=== PATIENT | male | born 1965 | race Caucasian/White ===

== ENCOUNTER 2017-11-17 15:03 | Emergency (ER) | payer MEDICAID ==
[~2017-11-17] VITALS: Ht 177.8 cm; Wt 97.7 kg
[2017-11-17] MEDS ORDERED: METO50 PO (17:22)
[2017-11-17] MEDS ORDERED: HYDR25TA PO (17:22)
[2017-11-17] MEDS ORDERED: NITR.4 SL (17:22)
[2017-11-17] MEDS ORDERED: LISI-662 PO (17:22)
[2017-11-17] MEDS ORDERED: HYDR25TA84 PO (17:22)
[2017-11-17] MEDS ORDERED: AMLO-512 PO (17:22)
[2017-11-17] MEDS ORDERED: NORT10 PO (17:22)
[2017-11-17] MEDS ORDERED: ATOR10TA84 PO (17:22)
[2017-11-17] MEDS ORDERED: KETOROLAC TROMETHAMINE 30 MG/ML VIAL IM ONE (18:00)
[2017-11-17] MEDS ORDERED: ACETAMINOPHEN 500 MG TABLET PO ONE (18:00)
[2017-11-17 18:13] VITALS: BP 146/95
== END 2017-11-17 18:18 | disposition home or self-care (01) ==
LOC: EMS 17:02
DX: K04.7 Periapical abscess without sinus (principal); E78.00 Pure hypercholesterolemia, unspecified; I10 Essential (primary) hypertension
CPT/HCPCS: 96372; 99283; J1885

== ENCOUNTER 2018-06-16 13:53 | Inpatient (IN) | payer SELFPAY ==
[~2018-06-16] VITALS: Ht 177.8 cm; Wt 99.9 kg
[~2018-06-16 13:53] MED LIST: AMLO-512 PO; ATOR10TA84 PO; HYDR25TA PO; HYDR25TA84 PO; LISI-662 PO; METO50 PO; NITR.4 SL; NORT10 PO
[2018-06-16 14:31] LABS: BASOPHILS % (AUTO) 0.4 % (0.0-2.0); HEMATOCRIT 46.6 % (41-53); HEMOGLOBIN 16.1 g/dL (13.5-17.5); LYMPHOCYTES % (AUTO) 27.2 % (22.0-44.0); MEAN CORPUSCULAR HEMOGLOBIN 30.7 pg (26.0-34.0); MEAN CORPUSCULAR HGB CONC 34.5 G/dL (31.0-37.0); MEAN CORPUSCULAR VOLUME 89 fL (80-100); MONOCYTES # (AUTO) 0.6 K/uL (0.1-1.0); MONOCYTES % (AUTO) 7.8 % (2.0-9.0); NEUTROPHILS # (AUTO) 4.7 K/uL (1.8-7.7); NEUTROPHILS % (AUTO) 63.6 % (40.0-70.0); PLATELET COUNT (AUTO) 298 K/uL (150-450); RED BLOOD CELL COUNT(AUTO) 5.25 MIL/uL (4.50-5.90); RED CELL DISTRIBUTION WIDTH 12.7 % (11.5-14.5)
[2018-06-16 14:37] LABS: ANION GAP 9 mmol/L (8-16); CALCIUM, TOTAL 9.1 mg/dL (8.8-10.5); CARBON DIOXIDE 25 mmol/L (22-29); CHLORIDE 106 mmol/L (98-107); CREATININE 1.02 mg/dL (0.60-1.30); GLOMERULAR FILTR. RATE CALC > 60 mL/min (>60); GLUCOSE,RANDOM 119 mg/dL (70-110); POTASSIUM 3.8 mmol/L (3.5-5.1); SODIUM SERUM 140 mmol/L (136-145); UREA NITROGEN, BLOOD 11 mg/dL (7-18)
[2018-06-16 14:38] LABS: INR 1.1 (0.9-1.1)
[2018-06-16] MEDS ORDERED: ASPIRIN 325 MG TABLET PO ONE (14:45)
[2018-06-16] MEDS ORDERED: NITROGLYCERIN 0.4 MG SUBLINGUAL TABLET #25 SL ONE (14:45)
[2018-06-16 15:00] LABS: B-TYPE NATRIURETIC PEPTIDE < 5 pg/mL (0-100)
[2018-06-16 15:02] LABS: ALANINE AMINOTRANSFERASE 38 U/L (12-78); ALBUMIN 3.8 g/dL (3.4-5.0); ALKALINE PHOSPHATASE 97 U/L (46-116); ASPARTATE AMINOTRANSFERASE 17 U/L (15-37); BILIRUBIN,TOTAL 0.4 mg/dL (0.1-1.0); CREATINE KINASE, TOTAL ONLY 88 U/L (39-308); TOTAL PROTEIN, SERUM 7.9 g/dL (6.4-8.2)
[2018-06-16] MEDS ORDERED: MORPHINE SULFATE 4 MG/ML SYRINGE IVP ONE (15:15)
[2018-06-16] MEDS ORDERED: SIMVASTATIN 20 MG TABLET PO SCH (16:30)
[2018-06-16] MEDS ORDERED: AmLODIPine BESYLATE 10 MG TABLET PO SCH (16:30)
[2018-06-16 17:31] VITALS: BP 129/78
[2018-06-16] MEDS ORDERED: MORPHINE SULFATE 2 MG/ML SYRINGE IVP PRN (18:30)
[2018-06-16 19:55] VITALS: BP 128/89
[2018-06-16] MEDS ORDERED: PNEUMOCOCCAL VACCINE POLYVALENT 0.5 ML VIAL [PPSV23] IM ONE (20:00)
[2018-06-16 20:26] LABS: APPEARANCE,URINE CLEAR (CLEAR); BILIRUBIN,URINE NEGATIVE (NEGATIVE); GLUCOSE, URINE (UA) NEGATIVE (NEGATIVE); KETONES,URINE NEGATIVE (NEGATIVE); LEUKOCYTE ESTERASE ,URINE NEGATIVE (NEGATIVE); NITRATE,URINE NEGATIVE (NEGATIVE); OCCULT BLOOD,URINE NEGATIVE (NEGATIVE); PH,URINE 5.5 (5.0-8.0); PROTEIN,URINE NEGATIVE (NEGATIVE); UROBILINOGEN,URINE 0.2 mg/dL (<=1.0)
[2018-06-16] MEDS ORDERED: OxyCODONE HCL/ACETAMINOPHEN 5-325 MG TABLET PO PRN (20:30)
[2018-06-16] MEDS ORDERED: MAGNESIUM HYDROXIDE SUSPENSION 30 ML UDCUP PO PRN (20:30)
[2018-06-16] MEDS ORDERED: ACETAMINOPHEN 325 MG TABLET PO PRN (20:30)
[2018-06-16] MEDS: DOCUSATE SODIUM 100 MG CAPSULE PO SCH (20:53)
[2018-06-16] MEDS ORDERED: HydrALAZINE HCL 25 MG TABLET PO SCH (21:00)
[2018-06-16] MEDS ORDERED: CARVEDILOL 12.5 MG TABLET PO SCH (21:00)
[2018-06-17] VITALS (7 sets, daily range): BP systolic 115–139; BP diastolic 65–91
[2018-06-17] MEDS: DOCUSATE SODIUM 100 MG CAPSULE PO SCH ×2 (08:01→20:09)
[2018-06-17] MEDS: PANTOPRAZOLE SODIUM 40 MG DR TABLET PO SCH (08:02)
[2018-06-17] MEDS: AmLODIPine BESYLATE 5 MG TABLET PO SCH ×2 (08:02→20:09)
[2018-06-17] MEDS: METOPROLOL TARTRATE 50 MG TABLET PO SCH ×2 (08:02→20:09)
[2018-06-17] MEDS: ATORVASTATIN CALCIUM 20 MG TABLET PO SCH (08:02)
[2018-06-17] MEDS ORDERED: ASPIRIN 325 MG TABLET PO SCH (09:00)
[2018-06-17] MEDS ORDERED: SODIUM CHLORIDE 0.9% 1,000 ML IV ONE ×2 (09:48→10:00)
[2018-06-17] MEDS ORDERED: IOVERSOL 350 MG/ML 150 ML VIAL ONE (14:37)
[2018-06-17] MEDS ORDERED: SODIUM CHLORIDE 0.9% 100 ML ONE (14:37)
[2018-06-17] MEDS ORDERED: NITROGLYCERIN 400 MCG/SUBLINGUAL SPRAY 4.9 GM BOTTLE SL ONE ×2 (14:40→15:02)
[2018-06-17] MEDS ORDERED: METOPROLOL TARTRATE 5 MG/5 ML VIAL ONE (14:40)
[2018-06-18 04:42] VITALS: BP 124/60
[2018-06-18 06:03] LABS: ALANINE AMINOTRANSFERASE 34 U/L (12-78); ALBUMIN 3.3 g/dL (3.4-5.0); ALKALINE PHOSPHATASE 81 U/L (46-116); ANION GAP 5 mmol/L (8-16); ASPARTATE AMINOTRANSFERASE 11 U/L (15-37); BILIRUBIN,TOTAL 0.5 mg/dL (0.1-1.0); CALCIUM, TOTAL 8.6 mg/dL (8.8-10.5); CARBON DIOXIDE 28 mmol/L (22-29); CHLORIDE 106 mmol/L (98-107); CREATININE 1.16 mg/dL (0.60-1.30); GLOMERULAR FILTR. RATE CALC > 60 mL/min (>60); GLUCOSE,RANDOM 89 mg/dL (70-110); POTASSIUM 3.9 mmol/L (3.5-5.1); SODIUM SERUM 139 mmol/L (136-145); TOTAL PROTEIN, SERUM 7.1 g/dL (6.4-8.2); UREA NITROGEN, BLOOD 14 mg/dL (7-18)
[2018-06-18 06:04] LABS: BASOPHILS % (AUTO) 0.3 % (0.0-2.0); EOSINOPHILS % (AUTO) 2.9 % (1.0-6.0); HEMOGLOBIN 15.8 g/dL (13.5-17.5); LYMPHOCYTES # (AUTO) 2.9 K/uL (1.0-4.8); MEAN CORPUSCULAR HEMOGLOBIN 32.7 pg (26.0-34.0); MEAN CORPUSCULAR HGB CONC 36.3 G/dL (31.0-37.0); MEAN CORPUSCULAR VOLUME 90 fL (80-100); MONOCYTES # (AUTO) 0.5 K/uL (0.1-1.0); MONOCYTES % (AUTO) 6.5 % (2.0-9.0); NEUTROPHILS % (AUTO) 52.3 % (40.0-70.0); PLATELET COUNT (AUTO) 274 K/uL (150-450); RED BLOOD CELL COUNT(AUTO) 4.82 MIL/uL (4.50-5.90); RED CELL DISTRIBUTION WIDTH 12.9 % (11.5-14.5)
[2018-06-18 07:51] VITALS: BP 108/68
[2018-06-18] MEDS: ATORVASTATIN CALCIUM 20 MG TABLET PO SCH (08:01)
[2018-06-18] MEDS: METOPROLOL TARTRATE 50 MG TABLET PO SCH (08:01)
[2018-06-18] MEDS: AmLODIPine BESYLATE 5 MG TABLET PO SCH (08:01)
[2018-06-18] MEDS: PANTOPRAZOLE SODIUM 40 MG DR TABLET PO SCH (08:01)
[2018-06-18] MEDS: DOCUSATE SODIUM 100 MG CAPSULE PO SCH (08:01)
[2018-06-18 11:41] VITALS: BP 111/68
[2018-06-18] MEDS ORDERED: METO25 PO (13:52)
[2018-06-18] MEDS ORDERED: AMLO-511 PO (13:52)
[2018-06-18] MEDS ORDERED: ASPI81 PO (13:52)
[2018-06-18] MEDS ORDERED: ATOR20TA86 PO (14:33)
== END 2018-06-18 15:30 | disposition home or self-care (01) | DRG 313 ==
LOC: EMS 13:54 → 5S 15:51
PROVIDERS: ADMIT Internal Medicine; ATTEND Internal Medicine
PROC: 3E02340 Introduction of Influenza Vaccine into Muscle, Percutaneous Approach (ICD-10-PCS; principal; 2018-06-17)
PROC: 3E0234Z Introduction of Serum, Toxoid and Vaccine into Muscle, Percutaneous Approach (ICD-10-PCS; 2018-06-17)
DX: R07.89 Other chest pain (principal); I20.0 Unstable angina; I10 Essential (primary) hypertension; E66.9 Obesity, unspecified; E78.00 Pure hypercholesterolemia, unspecified; H26.9 Unspecified cataract; E78.5 Hyperlipidemia, unspecified; Z87.11 Personal history of peptic ulcer disease; Z68.31 Body mass index [BMI] 31.0-31.9, adult; Z23 Encounter for immunization; Z87.442 Personal history of urinary calculi; Z90.49 Acquired absence of other specified parts of digestive tract; Z82.49 Family history of ischemic heart disease and other diseases of the circulatory system; Z79.82 Long term (current) use of aspirin
CPT/HCPCS: 75574; 83735; 90686; 90732; 93005; 93306; 96374; 99285; J2270; J3490; J7030; J7050

== ENCOUNTER 2019-04-30 20:59 | Emergency (ER) | payer MEDICAID ==
[~2019-04-30] VITALS: Ht 175.3 cm; Wt 91.4 kg
[~2019-04-30 20:59] MED LIST changes: -AMLO-512 PO; +AMLO5TAB9 PO; +ASPI81 PO; -ATOR10TA84 PO; +ATOR20TA86 PO; -HYDR25TA PO; -HYDR25TA84 PO; -LISI-662 PO; +METO25 PO; -METO50 PO; -NITR.4 SL; -NORT10 PO
[2019-04-30 21:45] LABS: BASOPHILS % (AUTO) 0.4 % (0.0-2.0); EOSINOPHILS % (AUTO) 1.6 % (1.0-6.0); HEMATOCRIT 45.3 % (41-53); LYMPHOCYTES # (AUTO) 2.8 K/uL (1.0-4.8); LYMPHOCYTES % (AUTO) 38.1 % (22.0-44.0); MEAN CORPUSCULAR HEMOGLOBIN 31.1 pg (26.0-34.0); MEAN CORPUSCULAR VOLUME 94 fL (80-100); MONOCYTES # (AUTO) 0.5 K/uL (0.1-1.0); MONOCYTES % (AUTO) 6.1 % (2.0-9.0); NEUTROPHILS % (AUTO) 53.8 % (40.0-70.0); PLATELET COUNT (AUTO) 309 K/uL (150-450); RED CELL DISTRIBUTION WIDTH 12.5 % (11.5-14.5)
[2019-04-30 21:56] LABS: ANION GAP 9 mmol/L (8-16); CALCIUM, TOTAL 9.1 mg/dL (8.8-10.5); CARBON DIOXIDE 27 mmol/L (22-29); CHLORIDE 106 mmol/L (98-107); CREATININE 1.22 mg/dL (0.60-1.30); GLOMERULAR FILTR. RATE CALC > 60 mL/min (>60); GLUCOSE,RANDOM 105 mg/dL (70-110); POTASSIUM 3.7 mmol/L (3.5-5.1); SODIUM SERUM 142 mmol/L (136-145); UREA NITROGEN, BLOOD 9 mg/dL (7-18)
[2019-04-30 22:03] LABS: ALANINE AMINOTRANSFERASE 21 U/L (12-78); ALBUMIN 3.8 g/dL (3.4-5.0); ALKALINE PHOSPHATASE 84 U/L (46-116); ASPARTATE AMINOTRANSFERASE 11 U/L (15-37); BILIRUBIN,TOTAL 0.3 mg/dL (0.1-1.0); TOTAL PROTEIN, SERUM 7.3 g/dL (6.4-8.2)
[2019-04-30 22:28] LABS: APPEARANCE,URINE CLEAR (CLEAR); BILIRUBIN,URINE NEGATIVE (NEGATIVE); GLUCOSE, URINE (UA) NEGATIVE (NEGATIVE); KETONES,URINE NEGATIVE (NEGATIVE); LEUKOCYTE ESTERASE ,URINE NEGATIVE (NEGATIVE); NITRATE,URINE NEGATIVE (NEGATIVE); OCCULT BLOOD,URINE TRACE (NEGATIVE); PROTEIN,URINE NEGATIVE (NEGATIVE); UROBILINOGEN,URINE 0.2 mg/dL (<=1.0)
[2019-04-30] MEDS ORDERED: METHOCARBAMOL 500 MG TABLET PO ONE (23:00)
[2019-04-30] MEDS ORDERED: KETOROLAC TROMETHAMINE 30 MG/ML VIAL IM ONE (23:00)
[2019-04-30 23:14] LABS: BACTERIA,URINE None Seen /HPF (None Seen); RBC,URINE 0-2 /HPF (0-2); SQUAMOUS EPITHELIAL CELL,UR Rare /LPF (None Seen); WBC,URINE 0-2 /HPF (0-5)
[2019-04-30 23:15] LABS: CALCIUM OXALATE CRYSTALS,UR Moderate /LPF (None Seen); MUCUS,URINE Few LPF (None Seen)
[2019-05-01 01:54] VITALS: BP 137/81
== END 2019-05-01 01:55 | disposition home or self-care (01) ==
LOC: EMS 21:00
DX: M54.42 Lumbago with sciatica, left side (principal); K59.00 Constipation, unspecified; I10 Essential (primary) hypertension; E78.00 Pure hypercholesterolemia, unspecified; Z79.82 Long term (current) use of aspirin
CPT/HCPCS: 36415; 74176; 80053; 81001; 85025; 96372; 99284; J1885

== ENCOUNTER 2022-02-12 09:32 | Emergency (ER) | payer MEDICAID ==
[~2022-02-12] VITALS: Ht 175.3 cm; Wt 91.3 kg
[~2022-02-12 09:32] MED LIST changes: +AMLO-257 PO; -AMLO5TAB9 PO; +ASPI-1450 PO; -ASPI81 PO
[2022-02-12] MEDS ORDERED: LISI40TA9 PO (12:36)
[2022-02-12] MEDS ORDERED: ATOR-2 PO (12:36)
[2022-02-12] MEDS ORDERED: CHLO25TA3 PO (12:36)
[2022-02-12] MEDS ORDERED: TAMS-13 PO (12:36)
[2022-02-12] MEDS ORDERED: FAMO40TA7 PO (12:36)
[2022-02-12] MEDS ORDERED: NITR0.4T50 SL (12:36)
[2022-02-12] MEDS ORDERED: METO100T14 PO (12:36)
[2022-02-12] MEDS ORDERED: ACETAMINOPHEN 325 MG TABLET PO ONE (12:45)
[2022-02-12] MEDS ORDERED: IBUPROFEN 400 MG TABLET PO ONE (12:45)
[2022-02-12] MEDS ORDERED: LIDOCAINE 5% TRANSDERMAL PATCH TD ONE (12:45)
[2022-02-12 13:56] VITALS: BP 148/80
== END 2022-02-12 13:58 | disposition home or self-care (01) ==
LOC: EMS 09:32
DX: M25.561 Pain in right knee (principal); E78.00 Pure hypercholesterolemia, unspecified; I10 Essential (primary) hypertension; H26.9 Unspecified cataract; Z87.442 Personal history of urinary calculi; Z86.79 Personal history of other diseases of the circulatory system; Z87.19 Personal history of other diseases of the digestive system; Z87.39 Personal history of other diseases of the musculoskeletal system and connective tissue; Z98.890 Other specified postprocedural states
CPT/HCPCS: 99283